=== PATIENT | female | born 1980 | race Caucasian/White ===

== ENCOUNTER 2017-03-10 10:48 | Emergency (ER) | payer OTHER ==
[~2017-03-10] VITALS: Ht 165.1 cm; Wt 106.6 kg
--- NOTE | ~2017-03-10 | CT105 ---
[facility] A Service of [facility] RADIOLOGY TEXT RESULTS PATIENT: BARBARA AKERS LOCATION: [facility] : 80 UNIT #: [id number] AGE: [address]: Tammi Fermin SEX: F ORDER DR: [id number] [facility]. [place], [place] [address] [id number] MR#: [id number] Acc #: [id number] NAME: BARBARA AKERS : 1980 SEX: F STUDY DATE/TIME: 03/10/2017 12:59 UNIT: [facility] ROOM: STUDY DESCRIPTION: CT Pelvis W Cont Attending Physician: Tammi Fermin P.A.-C. Ordering Physician: Tammi Fermin P.A.-C. Primary Care Physician: [facility] MEDICAL IMAGING REPORT This report is preliminary unless electronic signature is present EXAM CT scan of the pelvis with intravenous contrast 03/10/2017 HISTORY Right-side labial pain and swelling beginning today. TECHNIQUE Spiral CT was performed through the pelvis following intravenous contrast administration. This CT exam was performed with one or more of the following radiation dose reduction techniques: automatic control, adjustment of mA and/or kV according to patient size, and iterative reconstruction. FINDINGS There is no evidence of mass or abscess within the pelvis. There is minimal subcutaneous edema and minimal skin thickening along the right labia characteristic of cellulitis. The visualized gut is normal. There is minimal free fluid in the pelvis. IMPRESSION No evidence of mass or abscess. Minimal subcutaneous edema and skin thickening involving the right labia characteristic of cellulitis. Dictated by... yR Mei M.D. THIS IS AN ELECTRONICALLY VERIFIED REPORT Ry Mei M.D. at 03/11/2017 6:33 AM JESSE/sofiya TD: 03/11/2017 00:09 JOB #: [id number] [facility] A Service of [facility] RADIOLOGY TEXT RESULTS PATIENT: BARBARA AKERS [id number] : 80 UNIT #: [id number] AGE: [address]: Tammi Fermin SEX: F ORDER DR: MEDICAL IMAGING REPORT Page 1 of 1 COPY
[~2017-03-10 10:48] MED LIST: ATARAX PO; ZOFRAN ODT4 MG PO; ZOLOFT PO
[2017-03-10 12:00] LABS: BASOPHIL# 0.1 X10e3 (0-0.3); BASOPHIL% 0.6 % (0-2.5); EOSINOPHIL# 0.1 X10e3 (0-0.7); EOSINOPHIL% 0.6 % (0.0-7.0); HEMATOCRIT 39.1 % (35.0-45.0); HEMOGLOBIN 13.3 gm/dL (12.0-16.0); LYMPHOCYTE# 1.8 X10e3 (1.0-3.5); MEAN CELL VOLUME 92.8 FL (83-96); MEAN CORPUSCULAR HEMOGLOBIN 31.6 PG (28-34); MEAN PLATELET VOLUME 7.2 FL (6.5-11.5); MONOCYTE% 8.1 % (3.0-12.0); NEUTROPHIL# 9.2 X10e3 (1.5-7.1); NEUTROPHIL% 75.7 % (40-75); PLATELET COUNT 240 X10e3 (140-420); RED BLOOD COUNT 4.22 X10e (3.90-5.30); RED CELL DISTRIBUTION WIDTH 13.1 % (11.0-15.5); WHITE BLOOD COUNT 12.1 X10e3 (4.0-10.5)
[2017-03-10 12:01] LABS: DIFF IND NO
[2017-03-10 12:21] LABS: BUN/CREATININE RATIO 11.25; CREATININE SERUM 0.8 mg/dL (0.6-1.4); GLOM FILT RATE Estimated 94.9 mL/min (>60); POTASSIUM 3.6 mmol/L (3.5-5.1)
== END 2017-03-10 14:55 | disposition home or self-care (01) ==
LOC: CED 10:48 → CFTX 10:48
PROVIDERS: Physician Assistant
DX: N76.2 Acute vulvitis (principal); I10 Essential (primary) hypertension; F32.9 Major depressive disorder, single episode, unspecified; F90.9 Attention-deficit hyperactivity disorder, unspecified type; F17.200 Nicotine dependence, unspecified, uncomplicated; Z90.49 Acquired absence of other specified parts of digestive tract; Z90.710 Acquired absence of both cervix and uterus; Z79.899 Other long term (current) drug therapy
CPT/HCPCS: 36415; 72193; 80048; 85025; 87040; 96365; 96366; 96375; 99284; J1885; J3370; Q9967